=== PATIENT | female | born 1965 | race Caucasian/White ===

== ENCOUNTER 2019-05-01 16:36 | Emergency (ER) | payer OTHER ==
[2019-05-01 16:52] VITALS: BP 128/72; PULSE 79; TEMP 98; BMI 28.1
--- NOTE | 2019-05-01 17:54 | PDOC ---
History of Present Illness - General Chief Complaint: Headache Stated Complaint: HEADACHE Time Seen by Provider: 05/01/19 17:49 History Source: Patient - History of Present Illness Severity: Yes: severe Past History - Past Medical History Allergies/Adverse Reactions: Allergies Allergy/AdvReac Type Severity Reaction Status Date / Time No Known Allergies Allergy Verified 05/01/19 16:52 Home Medications: Ambulatory Orders Vit/Iron Fumarate/FA [ Tablet] 1 each PO DAILY 07/29/14 Acetaminophen [Tylenol -] 1,000 mg PO Q6H #30 tablet 05/01/19 Asthma: No Cancer: No Cardiac Disorders: No COPD: No Diabetes: No HTN: Yes (GESTATIONAL) Seizures: No Thyroid Disease: No - Psycho Social/Smoking Cessation Hx Smoking History: Never smoked Have you smoked in the past 12 months: No Hx Alcohol Use: No Drug/Substance Use Hx: No Hx Substance Use Treatment: No Review of Systems - Review of Systems Constitutional: No: Chills, Fever, Unexplained wgt Loss HEENTM: No: Blurred Vision ABD/GI: No: Nausea, Vomiting Neurological: Yes: Headache. No: Numbness, Tingling, Weakness, Dizziness *Physical Exam - Vital Signs Last Vital Signs Temp Pulse Resp BP Pulse Ox 98 F 79 18 128/72 99 05/01/19 16:49 05/01/19 16:49 05/01/19 16:49 05/01/19 16:49 05/01/19 16:49 - Physical Exam General Appearance: Yes: Appropriately Dressed. No: Apparent Distress HEENT: positive: EOMI, KRISTYN, Normal Voice Neck: positive: Supple. 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 Pt states for the past 5 days she has had diffuse, constant headache that radiates to her neck with no exacerbating factors. Taking Tylenol with no relief. Denies dizziness visual changes nausea vomiting focal weakness sensory changes or unexplained weight loss. Patient states she has had headaches in the past, though not this severe. States she was referred to a neurologist by her PMD but could not find a specialist that accept her insurance per patient. States MORRISON improved today see exam M/l acute on chronic MORRISON Improving now No red flags at this time but will scan given no neuroimaging in past Anticipate dc w/ pain control and neuro referral 05/01/19 18:41 CT head read as no acute pathology. There is possible mild prominence of the prepontine cistern which could represent small arachnoid versus epidermoid cyst per radiology. Went over report with patient. Stable for discharge with pain meds and neuro follow-up Discharge - Discharge Information Problems reviewed: Yes Clinical Impression/Diagnosis: Headache Qualifiers: Headache type: unspecified Headache chronicity pattern: unspecified pattern Intractability: not intractable Qualified Code(s): R51 - Headache Condition: Improved Disposition: HOME - Additional Discharge Information Prescriptions: Acetaminophen [Tylenol -] 1,000 mg PO Q6H #30 tablet - Follow up/Referral Referrals: Loretta Dixon DO [Primary Care Provider] - Ben Segal MD [Staff Physician] - - Patient Discharge Instructions Patient Printed Discharge Instructions: DI for Headache Additional Instructions: Your CAT scan did not show any source for your pain Take medication as prescribed and follow-up with Dr. Segal of neurology Print Language: CITIZEN [place] - Post Discharge Activity
[2019-05-01] MEDS ORDERED: ACETAMINOPHEN 325 MG TABLET (FP) PO ONE (17:55)
[2019-05-01] MEDS ORDERED: KETOROLAC TROMETHAMINE 60 MG/2 ML VIAL IM ONE (17:55)
[2019-05-01] MEDS ORDERED: KETOROLAC TROMETHAMINE 60 MG/2 ML VIAL ONE (18:40)
[2019-05-01] MEDS ORDERED: ACETAMINOPHEN 325 MG TABLET (FP) ONE (18:40)
== END 2019-05-01 19:01 | disposition home or self-care (01) ==
LOC: JER 16:36
PROC: 3E0233Z Introduction of Anti-inflammatory into Muscle, Percutaneous Approach (ICD-10-PCS; principal; 2019-05-01)
DX: R51 Headache (principal); I10 Essential (primary) hypertension
CPT/HCPCS: 70450-TC; 96372; 99281-25